=== PATIENT | female | born 2000 | race Caucasian/White ===

== ENCOUNTER 2023-06-15 04:57 | Day surgery (SDC) | payer OTHER ==
[2023-06-09 15:55] VITALS: BMI 32.8
[~2023-06-15 04:57] MED LIST: LIDOCAINE 1% P/F 10 MG/ML VIAL INF ONE
[2023-06-15] MEDS ORDERED: LIDOCAINE HCL 1%, 10 MG/ML (10ML VIAL) MDV ONE (07:08)
[2023-06-15] MEDS ORDERED: MIDAZOLAM HCL 2 MG/2 ML SINGLE DOSE VIAL ONE (07:45)
[2023-06-15] MEDS ORDERED: PROPOFOL 40 ML ONE (07:45)
[2023-06-15] MEDS ORDERED: HYDROmorphone HCl 2 MG/ML VIAL ONE (08:51)
[2023-06-15] MEDS ORDERED: ACETAMINOPHEN INJECTION 100 ML IVPB ONE (08:52)
[2023-06-15] MEDS ORDERED: LIDOCAINE 1% P/F 10 MG/ML VIAL INF ONE (09:08)
[2023-06-15] MEDS ORDERED: DEXAMETHASONE SOD PHOSPHATE 4 MG/1 ML VIAL ONE (09:15)
[2023-06-15] MEDS ORDERED: ONDANSETRON 4 MG/2 ML VIAL ONE (09:15)
[2023-06-15] MEDS ORDERED: METOCLOPRAMIDE HCL INJECTION 10 MG/2 ML VIAL ONE (09:15)
[2023-06-15] MEDS ORDERED: oxyCODONE HCL 5 MG TABLET PO PRN (09:35)
[2023-06-15] MEDS ORDERED: LACTATED RINGERS SOLUTION 1,000 ML IV SCH (09:45)
[2023-06-15 12:59] VITALS: BP 133/76; PULSE 85; RESP 18; TEMP 98.5
== END 2023-06-15 13:38 | disposition home or self-care (01) ==
LOC: JASU-SURG 04:57
PROVIDERS: ATTEND Surgery
PROC: 0HBU0ZX Excision of Left Breast, Open Approach, Diagnostic (ICD-10-PCS; principal; 2023-06-15 09:00)
DX: D24.2 Benign neoplasm of left breast (principal)
CPT/HCPCS: 81025; 88307-TC; 93005; 93010; 94760